=== PATIENT | male | born 1950 | race Caucasian/White ===

== ENCOUNTER → 2017-08-01 12:56 | Outpatient (CLI) | payer MEDICARE, BC, OTHER | END | disposition home or self-care (01) | LOC: D.RAD 12:56 | DX: S39.012A Strain of muscle, fascia and tendon of lower back, initial encounter (principal) ==

== ENCOUNTER → 2017-09-02 14:04 | Outpatient (CLI) | payer MEDICARE, BC, OTHER | END | disposition home or self-care (01) | LOC: D.RAD 14:04 | DX: S46.912A Strain of unspecified muscle, fascia and tendon at shoulder and upper arm level, left arm, initial encounter (principal); X58.XXXA Exposure to other specified factors, initial encounter; Y93.89 Activity, other specified; Y92.89 Other specified places as the place of occurrence of the external cause ==

== ENCOUNTER → 2017-10-27 11:03 | Outpatient (CLI) | payer MEDICARE, BC, OTHER | END | disposition home or self-care (01) | LOC: D.CT 11:03 | DX: M54.16 Radiculopathy, lumbar region (principal) ==

== ENCOUNTER → 2018-06-16 08:44 | Outpatient (CLI) | payer MEDICARE, BC, OTHER ==
[~2018-06-16 08:44] MED LIST: COREG CR20 MG PO; CRESTOR20 MG PO; ELIQUIS2.5 MG PO; TRIBENZOR 40-11 EACH PO
[2018-06-19 07:36] VITALS: BMI 34.5
== END | disposition home or self-care (01) ==
LOC: D.ECHO 08:44
DX: Z95.810 Presence of automatic (implantable) cardiac defibrillator (principal)

== ENCOUNTER → 2018-06-19 05:46 | Day surgery (SDC) | payer MEDICARE, BC, OTHER ==
[~2018-06-19] VITALS: Ht 177.8 cm; Wt 109.1 kg
--- NOTE | ~2018-06-19 | HEMODYNAMI ---
PATIENT:OZ GUERRA GENE MEDICAL RECORD: [id number] : 54 LOCATION:[facility] ADMISSION DATE: 06/19/18 Generatedon:06/19/20189:20 Patient name: OZ GUERRA Patient #: [id number] SSN: : 1950 Date of study: 06/19/2018 Page: Of Hemodynamic Procedure Report Patient Data Patient Demographics Procedure consent was obtained First Name: OZ Gender: Male Last Name: CHARLIE : 1950 [facility] Initial: GENE Age: 67 year(s) Patient #: [id number] Race: Unknown Additional ID: [id number] Contact details Address: [address] [place] [address] lane State: [place] City: [place] Zip code: [address] Past Medical History Allergies: No known allergies Admission Admission Data Admission Date: 06/19/2018 Admission Time: 5:46 Admit Source: Other Procedure Procedure Types Cath Procedure Diagnostic Procedure PPM/ICD Internal Cardiac Defib. Exchange Procedure Description Procedure Date Procedure Date: 06/19/2018 Procedure Start Time: 8:32 Procedure End Time: 9:12 Procedure Staff Name Function Mino Ibanez MD Performing Physician Zachery Cuellar MD Assisting physician Rolf Dyer RN Nurse Rena Serrato RT Scrub Jaime Taylor RT Monitor Procedure Data Cath Procedure Fluoroscopy Diagnostic fluoroscopy Total fluoroscopy Time: 0 time: 0 min min Diagnostic fluoroscopy Total fluoroscopy dose: 0 dose: 0 mGy mGy Procedure Complications No complications Procedure Medications Medication Administration Route Dosage Oxygen 8 l/min Refer to Anesthesia Notes for Sedation Medications Ancef (1Gm/50ml NS) I.V.P.B 3 g Ancef Irrigation Topical 1 g (1gm/500ml NS) Lidocaine 1% added to field 20 Hemodynamics Rest Heart Rate: 94 (bpm) Snapshots Pre Cath Intra NCS Post Cath Vital Signs Time Heart Resp SPO2 etCO2 NIBP (mmHg) Rhythm Pain Sedation Rate (ipm) (%) (mmHg) Status Level (bpm) 7:55:16 91 12 99 1.5 151/135(141) NSR 0 (11) 10(A) , No pain 7:59:44 90 13 98 1.5 172/117(146) NSR 0 (11) 10(A) , No pain 8:04:21 92 14 99 3 175/109(145) NSR 0 (11) 10(A) , No pain 8:08:58 92 13 98 37.1 178/112(146) NSR 0 (11) 10(A) , No pain 8:13:20 93 17 97 34.8 135/94(117) NSR 0 (11) 10(A) , No pain 8:17:42 97 16 93 24.2 145/97(119) NSR 0 (11) 9(A) , No pain 8:22:08 95 15 97 34.8 133/88(109) NSR 0 (11) 9(A) , No pain 8:26:30 95 19 94 41.6 140/88(113) NSR 0 (11) 9(A) , No pain 8:30:57 95 20 92 15.9 130/87(106) NSR 0 (11) 9(A) , No pain 8:35:17 300 18 94 44.6 129/92(108) NSR 0 (11) 9(A) , No pain 8:39:39 97 21 92 0 120/80(98) NSR 0 (11) 9(A) , No pain 8:43:59 97 31 92 43.1 124/76(94) NSR 0 (11) 9(A) , No pain 8:48:19 98 16 93 57.5 123/81(95) NSR 0 (11) 9(A) , No pain 8:52:39 98 18 94 58.3 127/77(97) NSR 0 (11) 9(A) , No pain 8:57:02 100 17 94 58.3 130/78(102) NSR 0 (11) 9(A) , No pain 9:01:20 101 18 93 57.6 128/83(95) NSR 0 (11) 9(A) , No pain 9:05:40 101 17 93 65.9 131/82(98) NSR 0 (11) 10(A) , No pain 9:10:02 102 26 95 51.4 129/70(100) NSR 0 (11) 10(A) , No pain Medications Time Medication Route Dose Verified Delivered Reason Notes Effec tiveness by by 7:46:37 Ancef I.V.P.B 3 g Zachery Rolf Per (1Gm/50ml Polo Dyer RN physician NS) 8:04:07 Oxygen simple 8 Zachery Elianaie used for per mask l/min Polo Dyer RN procedure anesthesia 8:04:33 Refer to Zacherydominique Bansal Anesthesia Polo Dyer RN Notes for Sedation Medications 8:04:59 Ancef Topical 1 g Zachery Monroyie used for Irrigation Polo Dyer RN procedure (1gm/500ml NS) 8:05:10 Lidocaine added 20ml Zachery Bingham for local 1% to vial Polo Cuellar MD anesthetic field x 2 Procedure Log Time Note 7:30:39 Admit Source: Other 7:31:19 Diagnostic Cath status Elective 7:31:22 Rlof Dyer RN sent for patient. Start room use. 7:31:24 Time tracking: Regular hours (M-F 7:00 - 5:00) 7:31:29 Plan of Care:Hemodynamics will remain stable., Cardiac rhythm will remain stable., Comfort level will be maintained., Respiratory function will remain adequate., Patient/ family verbilizes understanding of procedure., Procedure tolerated without complication., Recovers from procedure without complications.. 7:34:10 EVERA PEPPER SMITH [id number] opened to sterile field. 7:46:37 Ancef (1Gm/50ml NS) 3 g I.V.P.B was administered by Rolf Dyer RN; Per physician; 7:53:46 Vital chart was started 7:56:12 Patient received from Pre/Post Procedure Room to CCL 3 Alert and oriented. Tansferred to table in Supine position. 7:56:13 Warm blankets applied, and nette hugger turned on for patient comfort. 7:56:13 Correct patient and procedure confirmed by team. 7:56:15 Signed procedure consent form obtained from patient. 7:56:16 Baseline sample Acquired. 7:56:16 ECG and BP/O2 sat monitors applied to patient. 7:56:21 Rhythm: sinus rhythm 7:56:22 Full Disclosure recording started 7:57:00 H&P Date Dictated: 05/25/2018 Within 30 days and on chart.. 7:57:02 Pre-procedure instructions explained to patient. 7:57:02 Pre-op teaching completed and patient verbalized understanding. 7:57:21 Family in patients room. 7:57:24 Patient NPO since Midnight. 7:57:32 Patient allergic to No known allergies 7:57:37 Is the patient allergic to Iodine/contrast media? No. 7:57:46 Is patient on blood thinner?Yes 7:57:57 Patient diabetic? No. 7:57:59 If diabetic: On Metformin? No 7:58:00 ----Pre-sedation anethsthesia assessment.---- 7:58:02 Previous problem with sedation/anesthesia? No ? 7:58:04 Snore? Yes 7:58:07 Sleep apnea? No 7:58:09 Deviated septum? No 7:58:10 Opens mouth fully? Yes 7:58:11 Sticks out tongue? Yes 7:58:14 Airway obstruction? No ? 7:58:16 Dentures? No ? 7:58:18 Pre procedure: right dorsailis pedis pulse 1+ Palpable, but thready & weak; easily obliterated 7:58:21 Patient pain scale 0/10 ?. 7:58:34 IV patent on arrival in right forearm with 0.9% NaCl at 10ml/hr. 8:03:16 Lab results completed and on chart. 8:03:17 Lab results completed and on chart. 8:03:20 Left chest area was prepped with chlora-prep and draped in sterile fashion 8:03:22 Alarms reviewed by R. N. 8:03:22 Sharps counted by scrub and verified by R.N. 8:03:24 Physician paged 8:04:07 Oxygen 8 l/min simple mask was administered by Rolf Dyer RN; used for procedure; per anesthesia 8:04:33 Refer to Anesthesia Notes for Sedation Medications was administered by Rolf Dyer RN; ; 8:04:59 Ancef Irrigation (1gm/500ml NS) 1 g Topical was administered by Rolf Dyer RN; used for procedure; 8:05:10 Lidocaine 1% 20ml vial x 2 added to field was administered by Zachery Cuellar MD; for local anesthetic; 8:10:41 Physician arrived 8:10:41 --------ALL STOP TIME OUT------ 8:10:42 Final Timeout: patient, procedure, and site verified with staff and physician. All members of the team are in agreement. 8:10:49 Left chest site verified by team. 8:10:52 Physical assessment completed. ASA score P 2 - A patient with mild systemic disease as per Zachery Cuellar MD. 8:10:57 Sedation plan: TIVA Medication:Propofol 8:16:20 antonio Yañezko with TIVA 8:16:26 Procedure started. 8:31:33 Local anesthetic to Chest area with Lidocaine 1% w/epi by Zachery Cuellar MD.INITIAL ACCESS ONLY 8:31:45 [employer] insurance service representative teot contreras present for procedure. 8:32:15 Pre sharps counted by scrub and verified by RN: Sutures: 7; Sponges: 10; Stick needles: 0; Skin needles: 2; Blade: 1; Cautery: 1 8:32:28 Grounding pad site Left thigh. 8:32:30 Grounding pad site free from injury. 8:32:36 Lidocaine 1% w/epi was administered to left subclavicular area by Zachery Cuellar MD . 8:32:39 Incision made to left subclavicular area. 8:32:43 Generator pocket made/opened. 8:38:21 AICD was removed.. 8:45:41 AICD was attached to lead(s) and inserted into pocket. 8:54:57 AICD was attached to lead(s) and inserted into pocket. 8:55:04 AICD was inserted subcutaneously to left chest. 8:55:07 Device pocket was irrigated with Ancef. 8:55:16 Generator was sutured in place with 2-0 ticron. 8:55:34 Subcutaneous closure was completed with 3-0 vicryl. 9:05:00 Skin closure was completed with 4-0 vicryl. 9:06:02 Dermabond Pen opened to sterile field. 9:06:23 Lt Chest incision was dressed with Dermabond. 9:07:01 Lt Chest incision was dressed with Mepilex dressing. 9:09:51 Procedure ended.(Physican Out) 9:10:08 Fluoroscopy time 00.00 minutes. 9:10:13 Fluoroscopy dose: 0 mGy 9:10:13 Flurop Dose total: 0 9:10:14 Sharps counted by scrub and verified by R.N. 9:10:15 Insertion/operative site no bleeding no hematoma. 9:11:00 Post left sublavian artery:stable 9:11:01 Post Procedure Pulses reassessed and unchanged 9:11:07 Post procedure rhythm: sinus rhythm 9:11:08 Post procedure instruction explained to patient.Patient verbalizes understanding. 9:11:43 Procedure and supply charges have been captured, reviewed, submitted and are correct. 9:12:21 Procedure type changed to Cath procedure, Diagnostic procedure, PPM/ICD, Internal Cardiac Defib. Exchange 9:12:40 Procedure Complication : No complications 9:12:47 Vital chart was stopped 9:12:47 See physician's report for complete and final results. 9:12:50 Report given to Pre/Post Procedure Room. 9:12:54 Patient transfered to Pre/Post Procedure Room with Stretcher. 9:12:56 Procedure ended. 9:12:56 Full Disclosure recording stopped 9:12:59 End room use (Document Last) Device Usage Item Name Manufacture Quantity Catalog Hospital Part Current Minimal Lot# / Number Charge Number Stock Stock Serial# Code EVERA XT [employer]onic 1 [id number] MRI EX: DF1 [id number] Dermabond Ethicon 1 [id number] Pen Signature Audit [place] Stage Time Signature Unsigned Intra-Procedure 06/19/2018 Jaime Taylor RT(R) 9:20:29 AM Signatures Monitor : Jaime Taylor RT Signature : Date : Time : [facility] [address] [place] [address]
[2018-06-19 07:16] LABS: HEMATOCRIT 44.6 % (42.0-54.0); HEMOGLOBIN 15.2 g/dL (13.5-17.5); MCH 33.9 pg (26.0-34.0); MCHC 34.1 g/dL (31.0-37.0); MCV 99.6 fL (80.0-100.0); MEAN PLATELET VOLUME 10.9 fL (7.4-10.4); RBC 4.48 10x6/uL (4.20-6.10); RDW 12.9 % (11.5-14.5); WBC 7.6 10x3/uL (4.8-10.8)
[2018-06-19 07:23] LABS: CALC OSMOLALITY 287 mosm/kg (275-300); CALCIUM 8.8 mg/dL (8.5-10.1); CARBON DIOXIDE 27.3 mmol/L (21.0-32.0); CHLORIDE - SERUM 107 mmol/L (98-107); CREATININE - SERUM 0.9 mg/dL (0.6-1.3); GLUCOSE 104 mg/dL (74-106); POTASSIUM - SERUM 4.2 mmol/L (3.5-5.1); SODIUM 144 mmol/L (136-145); UREA NITROGEN 15 mg/dL (7-18); eGFR NON AFRICAN AMERICAN 90 mL/min (90-120)
[2018-06-19 07:29] LABS: INR 0.95 (0.85-1.17); PROTIME 12.2 SECONDS (11.6-15.0)
[2018-06-19 07:36] VITALS: BP 160/106; Ht 177.8 cm; Wt 109.1 kg
[2018-06-19 07:44] LABS: APTT 24.8 SECONDS (22.8-39.4)
--- NOTE | 2018-06-19 09:40 | NUR ---
ROOM AIR, NO RESP DISTRESS. LEFT CHEST DRSG CDI, NO BLEEDING OR HEMATOMA NOTED. NO C/O PAIN OR NAUSEA. VSS. FAMILY AT BEDSIDE, CALL LIGHT WITHIN REACH.
--- NOTE | 2018-06-19 10:15 | NUR ---
DISCHARGE INSTRUCTIONS GIVEN, VERBALIZED UNDERSTANDING. RIGHT PIV D/C'D WITH CATHETER INTACT, BAND AID TO SITE. UP TO BEDSIDE TO GET DRESSED. AMBULATED TO RESTROOM.
--- NOTE | 2018-06-19 10:30 | NUR ---
TAKEN OUT VIA WHEELCHAIR BY CATH MOLD LAMINATOR. LEFT FACILITY WITH FAMILY AND ALL PERSONAL BELONGINGS.
--- NOTE | 2018-06-20 13:21 | OP ---
PATIENT NAME: OZ GUERRA MEDICAL RECORD: [id number] :54 LOCATION:D.FORMERLY [facility] ADMISSION DATE: SURGEON: MONTSERRAT COOK MD DATE OF OPERATION: 06/19/2018 SURGEON: Montserrat Cook MD VACUUM CASTER: None. PROCEDURE PERFORMED: ICD generator change. PREOPERATIVE DIAGNOSIS: ICD battery end of life. POSTOPERATIVE DIAGNOSIS: ICD battery end of life. ANESTHESIA: Monitored anesthesia care with intravenous sedation and 20 cc of 1% Xylocaine local. COMPLICATIONS: None. SPECIMENS: Old generator disposed. CONDITION: Stable. DISPOSITION: Outpatient surgery and home INDICATION: ICD generator end of life. FINDINGS: Good pacing and sensing thresholds. PROCEDURE IN DETAIL: The patient was brought to the rn lab, where the chest was prepped and draped. Subcutaneous Xylocaine was instilled. An incision was made and taken down to the pocket. Hemostasis was ensured. The pocket was opened and there was some calcified eggshell-like calcification within the old pocket, which was removed. Thorough irrigation with antibiotic irrigation was performed. The pocket was slightly enlarged and the leads were dissected back carefully. They were disconnected one at a time from the old generator and connected to the new generator. The new generator was placed within the pocket and sutured into place. Again, thorough irrigation was undertaken. The wound was closed in 3 layers including Dermabond on the skin. The patient was stable at outpatient surgery. TRANSINT:[id number] Voice Confirmation ID: [id number] DOCUMENT ID: [id number] MONTSERRAT COOK MD at 1321 CC: [id number] DICTATION DATE: 06/19/18 1513 WINDOWS SOFTWARE DEVELOPER: 06/19/18 1708 [facility] 06/19/18 [id number] [place] [address]
== END | disposition home or self-care (01) ==
LOC: D.OPS 05:46 → D.PAN 07:30
PROVIDERS: Thoracic Surgery (Cardiothoracic Vascular Surgery)
DX: I25.5 Ischemic cardiomyopathy (principal)

== ENCOUNTER → 2018-07-31 16:54 | Outpatient (CLI) | payer MEDICARE, BC, OTHER ==
[2018-06-19 07:36] VITALS: BMI 34.5
== END | disposition home or self-care (01) ==
LOC: D.RAD 16:54
PROVIDERS: ATTEND Family Medicine
DX: R05 Cough (principal)

== ENCOUNTER → 2019-06-21 08:11 | Outpatient (CLI) | payer MEDICARE, OTHER ==
[2018-06-19 07:36] VITALS: BMI 34.5
== END | disposition home or self-care (01) ==
LOC: D.HCCARDIO 08:11
PROVIDERS: ATTEND Internal Medicine Cardiovascular Disease
DX: I25.10 Atherosclerotic heart disease of native coronary artery without angina pectoris (principal)

== ENCOUNTER → 2019-10-19 09:11 | Outpatient (CLI) | payer MEDICARE, OTHER ==
[2019-07-03 15:25] VITALS: BMI 36.4
[~2019-10-19 09:11] MED LIST changes: +BAYER CHEWABLE81 MG PO; +OLMESARTAN-HCT1 EAC1 PO; +PLAVIX75 MG PO
== END | disposition home or self-care (01) ==
LOC: D.US 09:11
PROVIDERS: ATTEND Family Medicine
DX: M25.572 Pain in left ankle and joints of left foot (principal); R60.0 Localized edema